=== PATIENT | female | born 1960 | race Caucasian/White ===

== ENCOUNTER 2018-09-14 05:55 | Day surgery (SDC) | payer BC ==
[~2018-09-14] VITALS: Ht 160 cm; Wt 65.8 kg
[2018-09-14] MEDS ORDERED: CEFAZOLIN SOD 1 GM/ ISO 50 ML PREMIX IV ONE (07:00)
[2018-09-14] MEDS ORDERED: IOHEXOL 50 ML IV ONE (07:25)
[2018-09-14] MEDS ORDERED: NS IRRIG SOLN 1000 ML IR ONE (07:30)
[2018-09-14] MEDS ORDERED: PROPOFOL 200MG/ 20ML VIAL (DIPRIVAN) IV ONE (07:30)
[2018-09-14] MEDS ORDERED: MIDAZOLAM HCL 5 MG/5 ML VIAL IVP ONE (07:30)
[2018-09-14] MEDS ORDERED: ROCURONIUM BROMIDE 10 MG/ML (ZEMURON) IV ONE (07:30)
[2018-09-14] MEDS ORDERED: BUPIVACAINE /PF 0.25% 30 ML VIAL INJ ONE (07:30)
[2018-09-14] MEDS ORDERED: NS 1000 ML IV.SOLN IV ONE (07:30)
[2018-09-14] MEDS ORDERED: SEVOFLURANE 15 MIN GAS INH ONE (07:30)
[2018-09-14] MEDS ORDERED: KETOROLAC TROMETHAMINE 30 MG VIAL IVP ONE (07:30)
[2018-09-14] MEDS ORDERED: fentaNYL CITRATE 250 MCG/5 ML AMP IV ONE (07:30)
[2018-09-14] MEDS ORDERED: GLYCOPYRROLATE 0.2 MG/ML VIAL IJ ONE (07:30)
[2018-09-14] MEDS ORDERED: NEOSTIGMINE METHYLSULFATE 1 MG/ML, 10 ML VIAL IVP ONE (07:30)
[2018-09-14] MEDS ORDERED: LR 1,000 ML IV SCH (08:11)
[2018-09-14] MEDS ORDERED: METOCLOPRAMIDE HCL 10 MG/2 ML VIAL IVP PRN (08:15)
[2018-09-14] MEDS ORDERED: MORPHINE 4 MG/ML INJ. SYRINGE IVP PRN ×2 (08:15)
[2018-09-14] MEDS ORDERED: D5/0.45 NS 1,000 ML IV SCH (08:44)
[2018-09-14] MEDS ORDERED: HYDROcodone/ACETAMIN 5-325 MG TAB (NORCO/ VICODIN) PO PRN ×2 (08:45→11:15)
[2018-09-14] MEDS ORDERED: MORPHINE 4 MG/ML INJ. SYRINGE ONE (09:10)
[2018-09-14] MEDS: MORPHINE 4 MG/ML INJ. SYRINGE IVP PRN ×2 (09:10→09:25)
[2018-09-14 09:48] VITALS: BP_SYST 107
[2018-09-14] MEDS ORDERED: HYDROcodone/ACETAMIN 5-325 MG TAB (NORCO/ VICODIN) ONE (10:03)
[2018-09-14] MEDS ORDERED: HYDROmorphone 1 MG INJ. 1 MG/ML AMPUL IVP PRN (11:15)
== END 2018-09-14 12:15 | disposition home or self-care (01) ==
LOC: SMU 05:55 → SDS 05:55
PROVIDERS: ATTEND Colon & Rectal Surgery
DX: K80.10 Calculus of gallbladder with chronic cholecystitis without obstruction (principal); Z88.8 Allergy status to other drugs, medicaments and biological substances; Z79.899 Other long term (current) drug therapy; M15.1 Heberden's nodes (with arthropathy); E78.5 Hyperlipidemia, unspecified; J30.9 Allergic rhinitis, unspecified; Z98.890 Other specified postprocedural states; Z90.710 Acquired absence of both cervix and uterus; Z80.0 Family history of malignant neoplasm of digestive organs; Z82.49 Family history of ischemic heart disease and other diseases of the circulatory system; Z80.1 Family history of malignant neoplasm of trachea, bronchus and lung
CPT/HCPCS: 47563; 74300; 88304; C1727; C1758; J0690; J1885; J2250; J2270; J2704; J2710; J3010; J3490 ×2; J7030; J7120; Q9967